=== PATIENT | male | born 1980 | race Caucasian/White ===

== ENCOUNTER 2025-05-11 16:09 | Emergency (ER) | payer OTHER, SELFPAY ==
--- NOTE | ~2025-05-11 | XR_ITS ---
XR hand LT min 3V Ordering provider: CHRISTINE Meng History: . left hand pain/no injury/hist of dislocation 5th digit 2 x's . Comparison: None. FINDINGS: BONES: Chip fracture at the base of the proximal phalanx of the left little finger. JOINT SPACES: Narrowing of the proximal and distal interphalangeal joints.. SOFT TISSUES: Normal. IMPRESSION: Chip fracture at the base of the proximal phalanx of the left little finger. No other fractures seen. Reviewed, dictated and finalized at location A.
--- NOTE | ~2025-05-11 | XR_ITS ---
XR wrist LT min 3V Ordering provider: CHRISTINE Meng History: . left wrist pain swelling/no known injury . Comparison: May 11, 2025 FINDINGS: BONES: Fracture at the base of the proximal phalanx of the left little finger. No definite scaphoid f racture. JOINT SPACES: Well maintained. SOFT TISSUES: Normal. IMPRESSION: Fracture at the base of the proximal phalanx of the left little finger. No other fractures seen. Reviewed, dictated and finalized at location A. IMPRESSION: Fracture at the base of the proximal phalanx of the left little finger. No othe r fractures seen.
[2025-05-11 16:20] VITALS: BP 191/124; PULSE 85; RESP 18; TEMP 36.6; O2SAT 100
[2025-05-11 16:25] VITALS: BP 192/114
[2025-05-11] MEDS: IBUPROFEN 400 MG TABLET PO (16:41)
--- NOTE | 2025-05-11 16:50 | ED_ITS ---
HPI - Extremity Problem General Chief complaint: Extremity Problem,Nontraumatic Stated complaint: hand swelling/wrist injury Source: patient Mode of arrival: ambulatory Limitations: no limitations History of Present Illness HPI Narrative: Patient presents for evaluation of left wrist swelling and pain for the last 5 days. He denies any identified precipitating cause or injury. 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 At rest his pain is manageable but with movement it increases to 7/10 in severity, described as sharp. He tried taking 400 mg of ibuprofen for his symptoms. He is right-hand dominant. He drinks several mixed-alcohol beverages daily. Last ETOH use was a few days ago. He arrives with markedly elevated blood pressure. He denies any chest pain or shortness of breath. Denies any symptoms consistent with alcohol withdrawal, including but not limited to auditory or visual hallucinations. Related Data Allergies Allergy/AdvReac Type Severity Reaction Status Date / Time No Known Allergies Allergy Verified 05/11/25 16:12 Review of Systems Review of Systems: CONSTITUTIONAL: Denies fever, chills, or sweats. EYES: Denies visual changes, redness, or discharge. ENT: Denies rhinorrhea, congestion, sore throat, or otalgia. CARDIOVASCULAR: Denies chest pain, palpitations, or edema. RESPIRATORY: Denies cough or dyspnea. GASTROINTESTINAL: Denies abdominal pain, nausea, vomiting, or diarrhea. GENITOURINARY: Denies dysuria or hematuria. SKIN: Denies rash or itching. MUSCULOSKELETAL: reports left wrist pain and swelling NEUROLOGIC: Denies headache, numbness, dizziness, or weakness. PSYCHIATRIC: Denies anxiety or depression. [facility] Past Medical History Medical History Subluxation of finger Surgical History Surgical History No pertinent past surgical history Family History Family History Mother Family history non-contributory Social History Social History Tobacco type: smokeless tobacco Alcohol intake: current Alcohol use details: several mixed drinks daily Gender identity (if verbalized by the patient): Male Spiritual care concerns: No Exam Narrative: GENERAL: Well-appearing, well-nourished, and in no acute distress. HEAD: Normocephalic, atraumatic. EYES: PERRLA and EOMI. ENT: Nares clear, no rhinorrhea or epistaxis. Mucous membranes moist. Oropharynx without tonsillar hypertrophy exudate or other lesions. Bilateral TMs pearly banda nonbulging NECK: Supple. No adenopathy or masses. No carotid bruits or JVD CHEST: Clear to auscultation. No respiratory distress. No wheezes rales or rhonchi HEART: Regular rate and rhythm. No murmur heard. Normal peripheral pulses. ABDOMEN: Soft, nontender, nondistended, normal active bowel sounds. EXTREMITIES: there is swelling localized to the left wrist. Decreased range of motion left wrist. No crepitus or deformity. There is tenderness throughout the left wrist. There is a deformity of the 5th digit left hand(chronic) SKIN: Warm, dry, no rash. NEURO: No focal deficits. Alert and oriented x3. PSYCH: Normal mood and affect. Course Course Emergency Course: This is a 45-year-old male who presented for evaluation of left wrist swelling and pain. X-rays were obtained and showed a small chip fracture at the base of the proximal phalanx of the 5th digit of the left hand. No recent trauma to the area. Likely remote injury. swelling of the left wrist is consistent with gout. Plan to control with prednisone and hydrocodone at home. His blood pressure was markedly elevated upon arrival. This is likely related to several factors including current pain level and regular alcohol use. He was given clonidine and had improvement in his blood pressure. I did offer him the opportunity to go to the emergency department, which she declined. I think this is reasonable as he is asymptomatic and blood pressures improved. I will discharge him with [facility] and recommended he called primary care provider tomorrow for an appointment. In the event that he becomes symptomatic related to his blood pressure or has worsening symptoms he should go to the emergency department. Patient in agreement with plan care. Level of Care: Express Care Visit Vital Signs Vital signs: Vital Signs Temperature 36.6 C 05/11/25 16:20 Pulse Rate 85 05/11/25 16:20 Respiratory Rate 18 05/11/25 16:20 Blood Pressure 191/124 H 05/11/25 16:20 Pulse Oximetry 100 05/11/25 16:20 Oxygen Delivery Room Air 05/11/25 16:20 Temperature 36.6 C 05/11/25 16:20 Pulse Rate 80 05/11/25 18:24 Respiratory Rate 18 05/11/25 16:20 Blood Pressure 178/114 H 05/11/25 18:24 Pulse Oximetry 100 05/11/25 16:20 Oxygen Delivery Room Air 05/11/25 16:20 MDM - Extremity (Nontraumatic) Imaging Data Radiologist's impression: XR wrist LT min 3V Ordering provider: CHRISTINE Meng History: . left wrist pain swelling/no known injury . Comparison: May 11, 2025 FINDINGS: BONES: Fracture at the base of the proximal phalanx of the left little finger. No definite scaphoid fracture. JOINT SPACES: Well maintained. SOFT TISSUES: Normal. IMPRESSION: Fracture at the base of the proximal phalanx of the left little finger. No other fractures seen. XR hand LT min 3V Ordering provider: CHRISTINE Meng History: . left hand pain/no injury/hist of dislocation 5th digit 2 x's . Comparison: None. FINDINGS: BONES: Chip fracture at the base of the proximal phalanx of the left little finger. JOINT SPACES: Narrowing of the proximal and distal interphalangeal joints.. SOFT TISSUES: Normal. IMPRESSION: Chip fracture at the base of the proximal phalanx of the left little finger. No other fractures seen. Discharge Plan Discharge Clinical Impression: Gout, BP (high blood pressure) Patient Disposition: Home Condition: Stable Instructions: Antibiotic Form, Gout (ED), Hypertension (ED) Additional Instructions: PLEASE CALL PRIMARY CARE PROVIDER TOMORROW TO DISCUSS YOUR BLOOD PRESSURE. IF YOU DEVELOP ANY CHEST PAIN, SHORTNESS OF BREATH, HEADACHES OR OTHER CONCERNING SYMPTOMS, PLEASE GO TO THE EMERGENCY DEPARTMENT Patient Language: Amharic Prescriptions: New amlodipine [Norvasc] 5 mg tablet 5 mg PO DAILY Qty: 15 0RF ondansetron 4 mg tablet,disintegrating 4 mg PO Q8H PRN (Reason: nausea and vomiting) Qty: 15 0RF prednisone 50 mg tablet 50 mg PO DAILY Qty: 5 0RF hydrocodone-acetaminophen 5-325 mg tablet 1 - 2 tablet PO Q6H PRN (Reason: pain) Qty: 15 0RF Follow-up/Referrals: Phillip Orlando DO [Physician] - Time of Disposition: 18:27
[2025-05-11 17:41] VITALS: BP 188/134
[2025-05-11 18:15] VITALS: BP 178/114
[2025-05-11 18:22] VITALS: BP 188/134; PULSE 84
[2025-05-11 18:24] VITALS: BP 178/114; PULSE 80
== END 2025-05-11 18:29 | disposition home or self-care (01) ==
PROVIDERS: Emergency Provider Nurse Practitioner; Referring Provider Family Medicine
DX: M10.9 Gout, unspecified (principal); I10 Essential (primary) hypertension; F17.290 Nicotine dependence, other tobacco product, uncomplicated
CPT/HCPCS: 73110; 73130; 99203; A9270; G0463